=== PATIENT | female | born 1955 | race Caucasian/White ===

== ENCOUNTER 2020-10-16 18:56 | Observation (INO) | payer MEDICAID, MEDICARE, OTHER ==
[~2020-10-16] VITALS: Ht 160 cm; Wt 66.1 kg
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
--- NOTE | 2020-10-16 19:26 | NUR ---
POSTERIOR HEAD WOUND CLEANED, AND PT HAS SMALL LAC TO POSTERIOR RIGHT SIDE OF HEAD, BLEEDING CONTROLLED. NOT A LOT OF BLEEDING INITIALLY WELL. PT TOLERATING CLEANING, AND RESTING. IV INTACT, AND FLUSHES EASILY. NS IN LINE AND AT TKO PER EMS.
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
[2020-10-16] MEDS ORDERED: SODIUM CHLORIDE FLUSH 10ML SYR IVF ONE (20:00)
[2020-10-16] MEDS ORDERED: SODIUM CHLORIDE 0.9% 1,000ML IVBOLUS ONE (20:00)
--- NOTE | 2020-10-16 20:18 | NUR ---
PT BACK FROM CT SCAN. ALERT AND ORIENTED BUT REMAINS SLEEPY, PER PT, AND RESTING COMFORTABLY. SUPPORT SPECIALIST TO BEDSIDE TO DRAW BLOOD. IVF INFUSING WITHOUT ISSUE. PT CALM, AND COOPERATIVE.
[2020-10-16 20:43] LABS: BASOPHILS % (AUTO) 0 % (0-1); EOSINOPHILS % (AUTO) 1 % (1-7); LYMPHOCYTES % (AUTO) 16 % (22-44); MEAN CORPUSCULAR HEMOGLOBIN 33.5 pg (27.0-34.8); MEAN CORPUSCULAR HGB CONC 34.2 g/dL (32.4-35.8); MEAN PLATELET VOLUME 6.4 fL (7.4-10.4); MONOCYTES % (AUTO) 6 % (2-9); NEUTROPHILS % (AUTO) 77 % (42-75); PLATELET COUNT 353 x10^3/uL (130-400); RED BLOOD COUNT 4.36 x10^6/uL (3.82-5.3); RED CELL DISTRIBUTION WIDTH 13.5 % (9.6-15.2)
[2020-10-16 20:44] LABS: ALANINE AMINOTRANSFERASE 26 U/L (12-78); ANION GAP 8 mmol/L (5-15); CALCIUM 8.1 mg/dL (8.5-10.1); CHLORIDE 108 mmol/L (98-107); CREATININE 0.78 mg/dL (0.55-1.02)
--- NOTE | 2020-10-16 20:45 | NUR ---
PT STOOD UP AND AMBULATED TO BATHROOM, TO PROVIDE URINE SAMPLE. STEADY GAIT AND NO STUMBLING NOTED. PTS SPEECH IS MORE CLEAR AT THIS TIME.
[2020-10-16 20:49] LABS: ALKALINE PHOSPHATASE 94 U/L (45-117); BILIRUBIN,TOTAL 0.2 mg/dL (0.2-1.0); MD NO; TOTAL PROTEIN 8.7 g/dL (6.4-8.2); TROPONIN I < 0.015 ng/mL (0.000-0.045)
[2020-10-16 20:50] LABS: INTERNATIONAL NORMALIZED RATIO 1.01 (0.93-1.1); PROTHROMBIN TIME 10.8 Seconds (9.6-11.5)
[2020-10-16 20:57] LABS: AMPHETAMINE SCREEN, URINE Negative (Negative); BARBITURATE SCREEN, URINE Negative (Negative); BENZODIAZEPINE SCREEN, URINE Negative (Negative); CANNABINOID SCREEN, URINE Negative (Negative); COCAINE SCREEN, URINE Negative (Negative); METHADONE SCREEN, URINE Negative (Negative); OPIATE SCREEN, URINE Negative (Negative)
[2020-10-16] MEDS ORDERED: LIDOCAINE 1%-EPI 1:100K, 20ML SQ ONE (21:00)
[2020-10-16] MEDS ORDERED: PLEASE ENTER ALLERGIES MC SCH (21:00)
[2020-10-16] MEDS ORDERED: DIPH,PERTUSS(ACELL),TET VAC/PF 0.5 ML IM-VACC ONE ×2 (21:00→21:51)
--- NOTE | 2020-10-16 21:10 | NUR ---
PTS LAC STAPLED BY PA, WITHOUT ISSUE. PT RESTING COMFORTABLY AND ON CR MONITOR. NO DISTRESS. PT TO BE ADMITTED.
--- NOTE | 2020-10-16 22:00 | NUR ---
REPORT CALLED TO [facility], PT IN NO DISTRESS, AND TRANSFERRED TO FLOOR.
[2020-10-16] MEDS ORDERED: MELATONIN 5 MG TABLET PO PRN (22:30)
[2020-10-16] MEDS ORDERED: LORazepam 2 MG/ML, 1ML IV PRN ×5 (22:30)
[2020-10-16] MEDS ORDERED: DOCUSATE 100 MG CAPSULE PO PRN (22:30)
[2020-10-16] MEDS ORDERED: FOLIC ACID 1 MG TABLET PO ONE (22:30)
[2020-10-16 22:40] VITALS: BP 119/77
[2020-10-16 22:43] VITALS: BP 119/77
[2020-10-16] MEDS: FOLIC ACID IV SCH (23:36)
[2020-10-16] MEDS: MAGNESIUM SULFATE IV SCH (23:36)
[2020-10-16] MEDS: [UNRECOGNIZED DRUG - OTHER] IV SCH (23:36)
[2020-10-16] MEDS: POTASSIUM CHLORIDE IV SCH (23:36)
[2020-10-17 00:48] VITALS: BP 123/72
[2020-10-17 02:15] VITALS: BP 122/68
[2020-10-17 03:17] LABS: BASOPHILS % (AUTO) 1 % (0-1); EOSINOPHILS % (AUTO) 2 % (1-7); LYMPHOCYTES % (AUTO) 26 % (22-44); MD NO; MEAN CORPUSCULAR HEMOGLOBIN 33.1 pg (27.0-34.8); MEAN CORPUSCULAR HGB CONC 33.8 g/dL (32.4-35.8); MEAN PLATELET VOLUME 6.4 fL (7.4-10.4); MONOCYTES % (AUTO) 7 % (2-9); NEUTROPHILS % (AUTO) 64 % (42-75); PLATELET COUNT 333 x10^3/uL (130-400); RED CELL DISTRIBUTION WIDTH 13.3 % (9.6-15.2)
[2020-10-17 03:26] LABS: ANION GAP 7 mmol/L (5-15); CALCIUM 7.9 mg/dL (8.5-10.1); CHLORIDE 113 mmol/L (98-107); CREATININE 0.62 mg/dL (0.55-1.02)
[2020-10-17 03:30] LABS: TROPONIN I < 0.015 ng/mL (0.000-0.045)
[2020-10-17] MEDS ORDERED: OMNIPAQUE 350 MG/ML, 100ML BOTTLE ONE (03:56)
[2020-10-17 05:30] LABS: CHOL/HDL RATIO 3.9; LDL/HDL RATIO 1.8 (0.5-3.0)
[2020-10-17 05:42] LABS: TROPONIN I < 0.015 ng/mL (0.000-0.045)
[2020-10-17 06:21] VITALS: BP 131/81
[2020-10-17 07:48] VITALS: BP 130/84
[2020-10-17] MEDS: [UNRECOGNIZED DRUG - OTHER] IV SCH ×2 (11:14→22:50)
[2020-10-17] MEDS: FOLIC ACID IV SCH ×2 (11:14→22:50)
[2020-10-17] MEDS: POTASSIUM CHLORIDE IV SCH ×2 (11:14→22:50)
[2020-10-17] MEDS: MAGNESIUM SULFATE IV SCH ×2 (11:14→22:50)
[2020-10-17 13:18] VITALS: BP 130/77
[2020-10-17] MEDS ORDERED: ATOR40TA78 PO (13:30)
[2020-10-17] MEDS ORDERED: THIA100T67 PO (13:30)
[2020-10-17] MEDS ORDERED: ASPI-963 PO (13:35)
[2020-10-17 19:59] VITALS: BP 120/74
[2020-10-18 01:01] VITALS: BP 123/79
[2020-10-18 05:41] LABS: BASOPHILS % (AUTO) 1 % (0-1); EOSINOPHILS % (AUTO) 2 % (1-7); LYMPHOCYTES % (AUTO) 13 % (22-44); MEAN CORPUSCULAR HEMOGLOBIN 33.1 pg (27.0-34.8); MEAN CORPUSCULAR HGB CONC 33.9 g/dL (32.4-35.8); MEAN PLATELET VOLUME 6.7 fL (7.4-10.4); MONOCYTES % (AUTO) 6 % (2-9); NEUTROPHILS % (AUTO) 80 % (42-75); PLATELET COUNT 328 x10^3/uL (130-400); RED BLOOD COUNT 4.11 x10^6/uL (3.82-5.3); RED CELL DISTRIBUTION WIDTH 13.1 % (9.6-15.2)
[2020-10-18 05:45] LABS: MD NO
[2020-10-18 05:54] LABS: CHLORIDE 111 mmol/L (98-107)
[2020-10-18 06:03] LABS: ANION GAP 5 mmol/L (5-15); CALCIUM 7.7 mg/dL (8.5-10.1); CREATININE 0.63 mg/dL (0.55-1.02)
[2020-10-18 06:04] LABS: ALANINE AMINOTRANSFERASE 18 U/L (12-78); ALBUMIN 3.1 g/dL (3.4-5.0); ALKALINE PHOSPHATASE 78 U/L (45-117); BILIRUBIN,TOTAL 0.4 mg/dL (0.2-1.0); TOTAL PROTEIN 7.1 g/dL (6.4-8.2)
[2020-10-18 07:00] VITALS: BP 124/80
[2020-10-18] MEDS: FOLIC ACID IV SCH (08:00)
[2020-10-18] MEDS: [UNRECOGNIZED DRUG - OTHER] IV SCH (08:00)
[2020-10-18] MEDS: MAGNESIUM SULFATE IV SCH (08:00)
[2020-10-18] MEDS: POTASSIUM CHLORIDE IV SCH (08:00)
== END 2020-10-18 13:35 | disposition home or self-care (01) ==
LOC: ED 20:51 → INTOOBSV 21:22 → EDIP 21:22 → 4EST 22:28 → DCLOUNGE 10-18 13:29 → UNDODISIN 10-18 13:35
PROVIDERS: ADMIT Family Medicine; ATTEND Hospitalist
DX: G45.9 Transient cerebral ischemic attack, unspecified (principal); S01.01XA Laceration without foreign body of scalp, initial encounter; F10.129 Alcohol abuse with intoxication, unspecified; F17.200 Nicotine dependence, unspecified, uncomplicated; W01.0XXA Fall on same level from slipping, tripping and stumbling without subsequent striking against object, initial encounter; Y93.89 Activity, other specified; Y92.89 Other specified places as the place of occurrence of the external cause; Z79.899 Other long term (current) drug therapy; Z23 Encounter for immunization
CPT/HCPCS: 12001; 36415; 70450; 70496; 70498; 70551; 80048; 80053; 80061; 80307; 80320; 83036; 83605; 83735; 84484; 85025; 85610; 90471; 90715; 92523; 93005; 93306; 96360; 96361; 97161; 97165; 99285; G0378; J3475; J3480; J7030; Q9967; 12031; G0480